=== PATIENT | female | born 1965 | race Two or more races ===

== ENCOUNTER 2019-11-10 21:31 | Emergency (ER) | payer BC, OTHER ==
[~2019-11-10] VITALS: Ht 165.1 cm; Wt 56.7 kg
[2019-11-10 21:31] VITALS: BP 121/73
--- NOTE | 2019-11-10 21:49 | NUR ---
Patient discharged to home in stable condition. Written and verbal after care instructions given. Patient verbalizes understanding of instruction.
== END 2019-11-10 21:51 | disposition home or self-care (01) ==
LOC: ER 21:32
DX: J45.909 Unspecified asthma, uncomplicated (principal); Z76.0 Encounter for issue of repeat prescription